=== PATIENT | male | born 1995 ===

== ENCOUNTER 2021-04-22 07:21 | Day surgery (SDC) | payer OTHER | END 2021-04-22 13:00 | disposition home or self-care (01) | LOC: CIR.AMB 07:21 | PROVIDERS: ATTEND Orthopaedic Surgery | DX: S52.121A Displaced fracture of head of right radius, initial encounter for closed fracture (principal); S53.31XA Traumatic rupture of right ulnar collateral ligament, initial encounter; Z20.822 Contact with and (suspected) exposure to COVID-19 ==